=== PATIENT | female | born 1960 | race Caucasian/White ===

== ENCOUNTER 2024-02-17 04:33 | Day surgery (SDC) | payer BC ==
[2024-02-12 14:29] VITALS: BMI 37.7
[2024-02-17] MEDS: INSULIN (NOVOLOG) ASPART 100 UNITS/ML 10ML VIAL SQ ONE (10:14)
[2024-02-17 15:21] VITALS: BP 131/71; PULSE 83; RESP 16; TEMP 98
== END 2024-02-17 12:30 | disposition home or self-care (01) ==
LOC: JASU-ENDO 04:33
PROVIDERS: ATTEND Internal Medicine Gastroenterology
PROC: 0DBN8ZX Excision of Sigmoid Colon, Via Natural or Artificial Opening Endoscopic, Diagnostic (ICD-10-PCS; principal; 2024-02-17 11:00)
DX: Z12.11 Encounter for screening for malignant neoplasm of colon (principal); D12.7 Benign neoplasm of rectosigmoid junction; K64.8 Other hemorrhoids; K57.30 Diverticulosis of large intestine without perforation or abscess without bleeding
CPT/HCPCS: 82962; 88305-TC; 88342-TC

== ENCOUNTER 2024-03-15 13:05 | Emergency (ER) | payer BC ==
[2024-03-15 13:19] VITALS: RESP 20; TEMP 99.5; BMI 33.3
[2024-03-15 13:44] VITALS: BP 128/75; PULSE 120
[2024-03-15] MEDS ORDERED: ACETAMINOPHEN 500 MG TABLET (FP) ONE (13:49)
[2024-03-15] MEDS: ACETAMINOPHEN 500 MG TABLET (FP) PO ONE (13:51)
[2024-03-15] MEDS ORDERED: AZITHROMYCIN 500 MG TABLET ONE (14:29)
[2024-03-15] MEDS: AZITHROMYCIN 250 MG TABLET PO ONE (14:30)
== END 2024-03-15 14:45 | disposition home or self-care (01) ==
LOC: FER 13:05
DX: J18.9 Pneumonia, unspecified organism (principal); R05.9 Cough, unspecified; R51.9 Headache, unspecified; R50.9 Fever, unspecified; Z20.822 Contact with and (suspected) exposure to COVID-19
CPT/HCPCS: 0241U-QW; 71046-TC-FY; 99284-25